=== PATIENT | male | born 1950 | race Caucasian/White ===

== ENCOUNTER 2023-09-06 09:37 | Emergency (ER) | payer MEDICARE, BC, SELFPAY ==
[2023-09-06 09:43] VITALS: BP 150/79
--- NOTE | 2023-09-06 10:30 | ED.GENMED ---
History of Present Illness
General
Chief Complaint: Musculo-Skeletal Complaint
Source: patient
Exam Limitations: none
Time Seen by Provider: 09/06/23 09:53
Nursing documentation reviewed up to this point in time: agreed with
History of Present Illness
History of Present Illness:
The patient is a very pleasant 73-year-old man who reports that he twisted his left foot while walking 3 days ago. Patient reports he did not fall. He did not injure any other areas of his body. Patient reports that initially he had no pain but
the following day after walking his dog for about 45 minutes, he started to develop swelling and pain in his mid left foot. Patient denies weakness and numbness of his feet and legs bilaterally.
Past History
Past History
ED Past Medical History: Arrthythmia (Atrial fibrillation), GERD, Hypercholesterolemia and Other (Kidney stones, diverticulosis)
Social History
Tobacco: Non-smoker
Alcohol: Other
Drug: None
Personal:
Living: with family
Employment: Other
Family History
Family History: Other
Review of Systems
Review of Systems
Allergies reviewed?: Yes
All Other Systems: ROS reviewed and negative except as documented in HPI and ROS
Constitutional: Reports no symptoms
EENT: Reports no symptoms
Respiratory: Reports no symptoms
Cardiac: Reports no symptoms
ABD/GI: Reports no symptoms
: Reports no symptoms
Musculoskeletal: Reports muscle pain and edema
Skin: Reports no symptoms
Neurological: Reports no symptoms
Endocrine: Reports no symptoms
Hematologic/Lymphatic: Reports no symptoms
Psychiatric: Reports no symptoms
Phy Exam
Physical Exam
Physical Exam:
Physical Exam
General: no apparent distress, not acutely ill
Neck: supple. no meningeal signs. normal psoterior pharynx
Heart: s1/s2 regular rate and rhythm, no murmur. equal radial pulses.
Lungs: no acute respiratory distress. clear bilaterally
Abdomen: normal bowel sounds. not tender. no CVAT
Neuro: alert and oriented. no focal neurological deficits
Skin: no rash
Psychiatric: well kept. interactive and cooperative
Extremities: Strong pulses in bilateral feet. Diffuse soft tissue swelling and tenderness of left dorsal aspect of foot. No areas of bony tenderness
Course
Orders/Labs/Results
Orders:
Orders
09/06/23 09:45
Foot, Left 3 View [CR Foot - Left Min 3 Views] Urgent
Comment:
Reason For Exam: injury, swellinig
Vital Signs
Initial and Last Documented VS:
Initial Vital Signs
Temp Pulse Resp BP Pulse Ox
97.9 F 75 16 150/79 98
09/06/23 09:43 09/06/23 09:43 09/06/23 09:43 09/06/23 09:43 09/06/23 09:43
Last Documented Vital Signs
Temp Pulse Resp BP Pulse Ox
97.9 F 70 14 141/72 98
09/06/23 09:43 09/06/23 11:28 09/06/23 11:28 09/06/23 11:28 09/06/23 11:28
MDM/Problems Addressed
Differential Diagnosis Includes:
Left foot contusion, left foot strain, left foot fracture
MDM/Problems Addressed:
Patient presents with acute swelling and pain of left foot after twisting it 3 days ago
*Radiology
Radiology exam reviewed: preliminary read by ED provider (Left foot x-ray reviewed by me. No acute fracture) and radiology read reviewed
*Pulse Oximetry
Patient hypoxic: no
*EKG
Interpreted by ED Provider?: NA
*Safety Patrol Officer Interpretation
Rate: Safety Patrol Officer- N/A
*Critical Care Note
Total Time (30-74mins, 75-104mins- exclusive of procedures): Not Applicable
Data Reviewed
Source: patient and spouse
Update Note
Update Note:
Patient has excellent strength and sensation of his left foot. No fracture seen. Likely due to soft tissue injury. Encouraged ice, elevation, Steve wrap for comfort and follow-up with primary in 3 days if still having pain
ED Attending Note
-
Portions of this chart may have been created with voice recognition software.� Occasional wrong word or��sound alike� substitutions may have occurred due to the inherent limitations of voice recognition software.
Discharge Plan
Departure
Patient Disposition: Home (Routine Discharge)
Date of Disposition: 09/06/23
Time of Disposition: 11:13
Patient with high blood pressure during this ER visit?: Yes
Condition: Good
Covid-19: Not Applicable
Discharge Problem:
Sprain of foot, left
Instructions: Foot Sprain ED
Prescriptions:
New
tramadol 25 mg tablet
50 mg PO BID PRN (Reason: Pain) Qty: 12 0RF
No Action
atorvastatin 40 mg Tablet
40 mg PO QPM
carvedilol 3.125 mg Tablet
1.5625 mg PO BID
Patient Comments:
1/2 tablet BID
esomeprazole magnesium 40 mg Capsule,Delayed Release(Dr/Ec)
40 mg PO DAILY
Eliquis 5 mg Tablet
5 mg PO BID
Referrals:
Alysa Trevizo MD [Family Provider] -
Activity Restrictions/Additional Instructions:
Ice and elevate your left foot is much as possible to reduce the swelling and pain. Please follow-up with your primary care doctor in about 3 days if you are still having significant pain and swelling.
Please try to rest and reduce excessive walking for at least 6 to 7 days. You can weight-bear as tolerated. You can take the Steve wrap on and off for bathing/showering
Interventions
Interventions:
*Risk Screen - Suicide Last Done: 09/06/23 09:43
*General Assessment Last Done: 09/06/23 09:43
*Neglect/Abuse Screening Last Done: 09/06/23 09:43
ED- Fall Risk Assessment Last Done: 09/06/23 11:29
*ED COVID-19 Vaccine History Last Done: 09/06/23 11:29
*Nursing Disposition Last Done: 09/06/23 11:29
ED-Musculoskeletal Assessment Last Done: 09/06/23 11:28
Discharge Date and Time
Discharge Date/Time: 09/06/23 11:30
Print Language: TELUGU
[2023-09-06 11:28] VITALS: BP 141/72
== END 2023-09-06 11:30 | disposition home or self-care (01) ==
LOC: EMR 09:37
PROVIDERS: EMERGENCY PHYSICIAN Emergency Medicine; FAMILY PHYSICIAN Internal Medicine
DX: S93.602A Unspecified sprain of left foot, initial encounter (principal); X50.1XXA Overexertion from prolonged static or awkward postures, initial encounter
CPT/HCPCS: 99283; 73630

== ENCOUNTER 2023-11-07 08:30 | Day surgery (SDC) | payer MEDICARE, BC, SELFPAY ==
[2023-11-07] VITALS (10 sets, daily range): BP systolic 121–140; BP diastolic 72–88
[2023-11-07 11:30] LABS: ACT-LR - POC 305 Seconds (116-155)
[2023-11-07 11:48] LABS: ACT-LR - POC 305 Seconds (116-155)
--- NOTE | 2023-11-07 12:16 | ITS.CL.ABL ---
Duck Operator - Ablation
Ablation
Procedure Report:
ELECTROPHYSIOLOGY ABLATION STUDY
�
DATE:: November 07, 2023 �����������������������������REFERRING: Dr. Jose Alejandro Harman
�
INDICATION: Paroxysmal supraventricular tachycardia in the form of atrial fibrillation and potentially atypical atrial flutter. Prior PVI and posterior box lesion set (IK) in 2022
�
HISTORY: See H and P.��As above
�
ANTIARRHYTHMIC DRUG: Diltiazem
�
PRE-PROCEDURE CHAZ: No atrial thrombus
�
PRESENTING RHYTHM: Sinus bradycardia with frequent PACs
�
'TIME-OUT':��called and confirmed.
�
SEDATION/ANESTHESIA:��provided via the anesthesia department using general anesthesia (LMA).
�
INTRAVENOUS/ARTERIAL ACCESS:
Right femoral venous - 10 Fr, 8Fr
Left femoral venous - 8 Fr, 6 Fr
Vascade vascular closure
Ultrasound guidance for bilateral femoral vein access was utilized by me to obtain access with demonstration of normal anatomy
CHADS-VASC Score:
�
HAS-Bled Score
�
PROCEDURE:
1.��A decapolar CS catheter was placed within the CS for mapping and pacing.��This was also used as the reference catheter for the 3-D map.
�
2. The intracardiac ultrasound catheter was positioned in the RA to identify the FO for targeting of transseptal puncture, assist��in identification of the pulmonary vein ostia, monitoring pre and post ablation pulmonary vein flow velocities,
monitoring for 'bubble' formation during RF application as a sign of thermal injury,��and to monitor for pericardial effusion during mapping and ablation procedure.���Left atrial size, LV ejection fraction, and pulmonary vein flows were monitored
pre and post ablation procedure. The other valves were inspected and found to be free of significant regurgitation or stenosis.
�
3.��Half of the calculated heparin bolus was administered prior to the first transeptal puncture.��Transseptal puncture was performed to diagnose RA and LA pressure so that safety of LA mapping and ablation could be further assessed, and to access
the left atrium and pulmonary veins for mapping and ablation.��This entailed advancing an 10 Slovak SL-1 sheath with dilator into the superior vena cava and withdrawing both (monitoring intracardiac ultrasound, fluoroscopy and tip pressure) with the
tip oriented toward the atrial septum.��The fossa ovalis was engaged (indicated by sudden displacement of the sheath tip as well as tenting of the fossa seen on intracardiac ultrasound).��Left atrial access required a pass with the [place]rough
needle extended.��Left atrial catheter position was confirmed by pressure monitoring (RA mean pressure 8 mm Hg and LA mean presure 14 mm Hg), LA saturation (99%),��as well as fluoroscopy.��The sheath was advanced over the dilator and positioned in
the left atrium.��Over the ProTrac wire after the 10 Slovak steerable sheath was brought to the left atrium�and upgraded to the pulse select sheath. The remainder of the calculated heparin bolus was administered and heparin was
infused to maintain ACT at 300 -350 seconds throughout the case.
�
4.��RA pacing was performed via the proximal decapolar poles and LA pacing was performed via the distal decapolr poles.
�
5. A quadrapolar catheter was first positioned at the His position for His Bundle recording which was tagged via the 3-D Navex sytem, and then passed to the RVA for RV pacing and recording.
�
6. There was focal connection of the left inferior pulmonary vein and the inferior region, the right inferior pulmonary vein and the inferior region, and the septal aspect of the right superior pulmonary vein. The grid was interrogated in each of
the LIPV, LSPV, RSPV and the RIPV.��There was isolated firing from the left atrial posterior wall without demonstrated capture of the remainder of the left atrium at baseline.
�
7.��Next, a 3-D map was created using Navex.���A 3-D reconstructed CT image was compared to the 3-D Navex map to assist in anatomic interpretation, mapping and ablation.��The CT image and the NavX image were fused.
�
8. The left superior left inferior and right inferior pulmonary veins were isolated with the PFA catheter and additional lesions were given in the posterior wall for a total of 44 lesions. Interestingly there was no further isolated firing after
ablation of the posterior wall. Additional AF substrate in the interatrial septum and the floor of the left atrium were targeted.
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
9. Normal sinus node and AV node function were noted.
�
TOTAL FLOURO TIME: 12.6 minutes
�
TOTAL RF DURATION: 0 minutes
�
REVERSAL OF HEPARIN: 35 mg of protamine, slow IV administration
�
COMPLICATIONS:
None
Intracardiac US shows no pericardial effusion post ablation.
�
SUMMARY:��
Complex left atrial mapping and ablation.
Reisolation of the pulmonary veins as above as well as extrapulmonary vein lesions to the posterior wall and interatrial septum. Noninducible for tachyarrhythmias post procedure. Vascade vascular closure was utilized.
�
RECOMMENDATIONS:
1. Admit to monitored bed.��
2. Resume anticoagulation
3. Out of bed in 2 hours
4.� Consider same-day discharge
�
Copy to: Dr. Jose Alejandro Collins
�
--- NOTE | 2023-11-07 15:09 | W.PN.UPDATE ---
Update Note
Progress Note Update
73 yo WM s/p redo PVI (same day). He feels good, no cp, sob yazan diet, voiding, amb w/o dizziness, b/l groins VASCADE c/d/i, soft, EKG SR with PAC's. He will continue OAC Eliquis and diltiazem. Activity restrictions reviewed. He will f/u Dr. Collins
in 2 mo. He is for d/c home after 3pm.
SUMMARY:��
Complex left atrial mapping and ablation.
Reisolation of the pulmonary veins as above as well as extrapulmonary vein lesions to the posterior wall and interatrial septum. Noninducible for tachyarrhythmias post procedure. Vascade vascular closure was utilized.
�
RECOMMENDATIONS:
1. Admit to monitored bed.��
2. Resume anticoagulation
3. Out of bed in 2 hours
4.� Consider same-day discharge
�
Copy to: Dr. Jose Alejandro Collins
== END 2023-11-07 15:12 | disposition home or self-care (01) ==
LOC: CATH 08:30
PROVIDERS: ATTENDING PHYSICIAN Internal Medicine Cardiovascular Disease; FAMILY PHYSICIAN Internal Medicine; OTHER PHYSICIAN Internal Medicine Cardiovascular Disease
DX: I48.19 Other persistent atrial fibrillation (principal); I48.92 Unspecified atrial flutter; I49.3 Ventricular premature depolarization; Z79.899 Other long term (current) drug therapy; K21.9 Gastro-esophageal reflux disease without esophagitis; I10 Essential (primary) hypertension; I25.10 Atherosclerotic heart disease of native coronary artery without angina pectoris; E78.5 Hyperlipidemia, unspecified; Z79.01 Long term (current) use of anticoagulants; R00.1 Bradycardia, unspecified; I49.1 Atrial premature depolarization
CPT/HCPCS: C1732; C1894; C1730; C1733; C1769; C1766; C1892; C1759; 85347; 93005; 93656; 93657; C1760

== ENCOUNTER → 2023-11-21 07:39 | Outpatient (REF) | payer MEDICARE, BC, SELFPAY ==
[2023-11-21 10:43] LABS: Glycohemoglobin (HgbA1c) 5.8 % (4.0-5.6)
[2023-11-21 10:46] LABS: ALT (SGPT) 29 U/L (0-50); AST (SGOT) 21 U/L (17-59); Albumin 4.1 g/dl (3.5-5.0); Alkaline Phosphatase 87 U/L (38-126); Blood Urea Nitrogen 26 mg/dl (9-20); Calcium 9.3 mg/dl (8.4-10.2); Carbon Dioxide 26 mmol/L (22-30); Chloride 103 mmol/L (98-107); Direct Bilirubin 0.2 mg/dl (0.0-0.4); Glucose 95 mg/dl (70-99); HDL Cholesterol 75 mg/dl; LDL Cholesterol, Calculated 93 mg/dl; Potassium 4.1 mmol/L (3.5-5.1); Sodium 141 mmol/L (135-145); Total Bilirubin 0.7 mg/dl (0.2-1.3); Total Cholesterol 180 mg/dl (50-199); Total Protein 6.6 g/dl (6.3-8.2); Triglyceride 64 mg/dl (10-149); Very Low Density Lipoprotein 12 mg/dl (0-30); eGFR > 60.00
== END ==
LOC: HWLAB 07:39
PROVIDERS: ATTENDING PHYSICIAN Internal Medicine
DX: E78.5 Hyperlipidemia, unspecified (principal); R73.01 Impaired fasting glucose; R17 Unspecified jaundice
CPT/HCPCS: 36415; 80053; 80061; 82248; 83036

== ENCOUNTER 2024-02-06 09:33 | Day surgery (SDC) | payer MEDICARE, BC, SELFPAY ==
[2024-02-06 10:01] VITALS: BMI 25.6
--- NOTE | 2024-02-06 10:43 | ITS.CL.CARDI ---
Personnel Recruiter - Cardioversion
Cardioversion
Procedure Report:
Procedure: Direct current electrical cardioversion
Pre-operative diagnosis: Persistent atrial fibrillation
Post-operative diagnosis: Persistent atrial fibrillation status post DC cardioversion to sinus rhythm
Anesthesia: MAC
Attending Physician: Alvin Harman MD
Procedure Description: The patient was brought to the electrophysiology laboratory in the fasting state. Adherence to anticoagulation regimen was confirmed. Informed consent was obtained from the patient prior to the start of the procedure.
Electrodes were placed on the patient and connected to an external defibrillator. Monitoring of blood pressure, ECG tracings, and pulse oximetry was initiated. The pads were applied to the patient in the anterior and posterior positions. The patient
was sedated by the anesthesiologist. A 200 joule biphasic synchronized shock was delivered to the patient under MAC anesthesia. Sinus rhythm was successfully restored. The patient recovered uneventfully from MAC anesthesia. There were no immediate
post-procedure complications. The patient left the lab in good condition. The attending physician was present throughout the entire procedure.
Impression: Successful direct current cardioversion with yarsani of sinus rhythm after one 200 joule biphasic synchronized shock.
--- NOTE | 2024-02-06 10:46 | PTCARENOTE ---
doing med rec with pt, he told this nurse he took no medications this am everything was yesterday, when doing time out this pt he stated to team he took both eliquis and cardizem this am, reclarified with pt lenka and team zeferino team he was wrong
and told me the wrong information and did take eliquis this am with no skipped doses.
== END 2024-02-06 11:21 | disposition home or self-care (01) ==
LOC: CATH 09:33
PROVIDERS: ATTENDING PHYSICIAN Internal Medicine Cardiovascular Disease; FAMILY PHYSICIAN Internal Medicine
DX: I48.19 Other persistent atrial fibrillation (principal); I48.92 Unspecified atrial flutter; I49.3 Ventricular premature depolarization; I49.1 Atrial premature depolarization; I25.10 Atherosclerotic heart disease of native coronary artery without angina pectoris; I10 Essential (primary) hypertension; E78.5 Hyperlipidemia, unspecified; K21.9 Gastro-esophageal reflux disease without esophagitis; Z79.01 Long term (current) use of anticoagulants
CPT/HCPCS: 92960; 93005

== ENCOUNTER 2024-02-19 07:49 | Inpatient (IN) | payer MEDICARE, BC, SELFPAY ==
--- NOTE | 2024-02-19 08:08 | W.PN.CARDCBS ---
Addendum entered and electronically signed by Vipul Davis MD 02/19/24 13:48:
I saw and examined the patient.
The DOOR ATTENDANT or PA's note was reviewed and I agree with the note.
Comment: General: Well developed, well nourished in NAD.
Neck: Supple, no JVD, HJR, carotids +2 B/L, no bruits bilaterally.
Heart: Non displaced PMI, RRR, no murmurs, No S3, S4, no rubs.
Lungs: Clear to auscultation bilaterally, no wheeze, rhonchi, rubs bilaterally,
normal expiratory phase.
Extremities: No clubbing, cyanosis or edema bilaterally.
Neuro: Grossly nonfocal, awake, alert and oriented x3.
Remains in sinus rhythm. Tikosyn has been ordered. Will follow QT interval. He had recently started on Lasix and will check proBNP.
Original Note:
Today's Communication / Plan
-
CrCl 81, start Tikosyn 500 mcg q 12 hours now
Follow HR and will likely lower dose of Cardizem CD to 120 mg BID this evening
No missed doses of Eliquis
Check pro-BNP
Impression / Plan
-
PCP: Dr. Trevizo
Cardiology: Dr. Harman
EP: Dr. Alonzo
Impression:
Direct admission for Tikosyn loading for paroxysmal Afib
Paroxysmal Afib/atypical atrial flutter
s/p PVI 06/08/22
s/p PVI 11/07/23
s/p latest CV 02/06/24
Previously on flecainide for [id number]
prescribed by a center director in [place], had couplets with a dose months ago, no recent doses taken
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
Nonflow limiting RCA lesion 40 to 50% proximal and 60% mid, 50% mid circumflex lesion
HTN
Stress echo 03/30/2022: Completed 8.5 METS of activity with [address] depression
Echo 2021: [facility] study, EF 55% with severely dilated left atrium and no valvular disease
Plan:
-Patient was seen in the cardiology office on 02/11/2024 and was noted to be in recurrent atypical atrial flutter following recent cardioversion and was offered Tikosyn admission for loading and was agreeable. Patient has a history of paroxysmal
atrial fibrillation initially diagnosed at [facility] in 2021. Patient then had a PVI with the other cardiology group on 06/08/2022. Patient recurred with atrial arrhythmia and has had CV. Patient was also in [place] and while there had
recurrent AF on 04/04/2023 and was started on flecainide pill in the pocket at that time. Patient's reported that the patient had couplets with a dose of flecainide back in 06/2023. 1 patient last saw us in the office on 02/11/2024 it was in
follow-up to a CV that was performed on 02/06/2024 and he was back in atypical atrial flutter. He has not taken any recent doses of flecainide. He has not missed any doses of Eliquis.
-ECG reviewed by me and patient is in SR with PVCs. QTc 445 ms.
-No recent doses of flecainide
-No missed doses of Eliquis.
-CrCl calculated by me is 81 based on age 73, wt 175 lbs and Cre 0.9. Will start Tikosyn 500 mcg q 12 hours
-Outpatient dose of Cardizem 240 mg BID was given this AM. Will follow on tele and plan to decrease dose of Cardizem CD now that he is back in SR.
-Recent outpatient telephone tasks reviewed, patient was started on Lasix 20 mg PO daily for 3 days due to increased LE edema and SOB. Patient reports a 6 lb weight loss and improved edema/PEREZ after Lasix dosed. Will not order additional Lasix at
this time. Check pro-BNP.
-Potassium is low normal at 3.7 and magnesium is 1.9. Will give KCl 40 meq now and follow up BMP in AM
-Patient reports that he is asymptomatic with Afib/flutter, but can tell he is out of rhythm when he check pulse.
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
Subjective
Date of Service: February 19, 2024
No chest pain or SOB
Objective
Labs:
Sodium 137, potassium 3.7, BUN 23, creatinine 0.9, blood sugar 1-2, magnesium 1.9
Hemoglobin 13.5, hematocrit 40.9, WBC 9.9, PLT 207
Vital Signs and I&O:
BP 127/70, heart rate 70, respiratory rate 18, temp 97.9, pulse ox 97% room air
Physical Exam
Physical Exam
GEN: NAD. AAOx3
HEENT: EOMI, MMM
LUNGS: RA. CTA B/L, no wheezes or rales
CV: Reg, S1/S2, no murmur
ABD: soft, BS+, NT, ND
EXT: No clubbing, cyanosis, lesions or edema B/L
NEURO: Gross non-focal
SKIN: Warm, dry and pink. No rash
[2024-02-19 08:17] VITALS: BP 127/70
[2024-02-19] MEDS: CARDIZEM CD 240 MG PO (08:47)
[2024-02-19] MEDS: ELIQUIS 5 MG PO ×2 (08:47→19:58)
[2024-02-19 09:17] LABS: Hematocrit 40.9 % (39.0-52.0); Hemoglobin 13.5 g/dL (13.0-18.0); Mean Corpuscular Hgb 27.9 pg (27.0-31.0); Mean Corpuscular Volume 84.5 fL (80.0-94.0); Mean Platelet Volume 10.7 fL (7.4-10.4); Platelet Count 207 10^3/uL (130-400); Red Blood Cell Count 4.84 10^6/uL (4.70-6.10); Red Cell Dist. Width 13.7 % (11.5-14.5); White Blood Cell Count 9.9 10^3/uL (4.8-10.8)
[2024-02-19 09:29] LABS: ALT (SGPT) 35 U/L (0-50); AST (SGOT) 22 U/L (17-59); Albumin 4.2 g/dl (3.5-5.0); Alkaline Phosphatase 86 U/L (38-126); Blood Urea Nitrogen 23 mg/dl (9-20); Calcium 9.2 mg/dl (8.4-10.2); Carbon Dioxide 26 mmol/L (22-30); Chloride 101 mmol/L (98-107); Glucose 102 mg/dl (70-99); Magnesium 1.9 mg/dl (1.6-2.3); Potassium 3.7 mmol/L (3.5-5.1); Sodium 137 mmol/L (135-145); Total Bilirubin 0.7 mg/dl (0.2-1.3); Total Protein 6.5 g/dl (6.3-8.2); eGFR > 60.00
[2024-02-19 09:34] VITALS: BMI 25.1
[2024-02-19 09:42] VITALS: BMI 25.1
--- NOTE | 2024-02-19 10:03 | W.CARD.TIKOS ---
Initiate Tikosyn
-
I verify that the patient has not taken any verapamil (Isoptin/Calan), ketoconazole (Nizoral), cimetidine (Tagamet), trimethoprim (Trimpex), trimethoprim/sulfamethoxazole (Bactrim), megesterol (Megace), prochlorperazine (Compazine),
hydrochlorothiazide (HCTZ), dolutegravir (Tivicay) or any Class I or Class III anti-arrhythmic within the last three days
AND
I verify that the patient has not taken amiodarone within the last THREE months, or that the patient's amiodarone plasma concentration is <0.3 mcg/mL.
Creatinine 0.9 mg/dL (0.7-1.3) 02/19/24 09:05
CrCl 81 calculated by me
Does patient have a Ventricular Conduction Abnormality: No
I have assessed the baseline QTc interval (using QT for heart rate less than 60 bpm) and deemed the patient is appropriate for Dofetilide therapy. I understand that Tikosyn is contraindicated if the QTc is >440msec (500msec in patients with
ventricular conduction abnormalities).
Baseline QTc (in msec): 445
QTc interval is greater than 440msec without conduction abnormality OR greater than 500msec with a conduction abnormality, but acceptable to proceed per Cardiology attending.
Reason for Administration with Prolonged QTc: Other Atrial Arrhythmia
Ordering Physician: Other (Dr. Vinod Harman)
--- NOTE | 2024-02-19 10:28 | CM ---
Addendum entered by Krystal Herring 02/19/24 11:52:
Telephone call to [facility] to check on co-pay and if they have Dofetilide 500 mcg in stock. [facility] has Dofetilide 500 mcg in stock. His co-pay would be zero.
Original Note:
Reviewed chart. Met with Mr. Amin to review discharge plans. He states prior to admission he resides with his spouse in a spilt level home without any steps to enter. He states he has six steps to each level. His bathrooms are on the second
floor. He states prior to admission he was independent with ambulation and adls. He states he does not have any DME in the home. He states he has a prescription plan with [employer] but in the new year his prescription plan coverage will change.
He will need a three day script sent to [facility] for a three day supply of Tikosyn for him to take home with him. Will try to get co-pay for Dofetilide. Medical work-up in progress. The discharge plan is to return home with his spouse when
medically stable.
[2024-02-19] MEDS: TIKOSYN 500 MCG PO ×2 (10:29→22:29)
[2024-02-19 11:33] VITALS: BP 124/94
[2024-02-19 11:59] LABS: NT-proBNP 533 pg/ml
--- NOTE | 2024-02-19 13:06 | PTCARENOTE ---
Tikosyn dose #1 administered. Ekg obtained. QTC 452. EKG reads SR w/ 1st deg AV block and occ PVCs. Dominga HOPKINS made aware.
[2024-02-19 15:23] VITALS: BP 133/85
[2024-02-19] MEDS: LIPITOR 40 MG PO (17:27)
[2024-02-19 19:48] VITALS: BP 136/89
--- NOTE | 2024-02-19 20:55 | PTCARENOTE ---
Pt. received at change of shift. Pt. seen and assessed in room. Pt. AOx3, tele reading NSR w/ occ. PVCs. VS WNL. Pt. ambulating in [place] without difficulty. Pt. educated on plan of care/next tikosyn dose & EKG. Pt. verbalizes understanding. Call teixeira
within reach. Continuing to monitor at this time.
[2024-02-19 22:14] VITALS: BP 133/67
[2024-02-19 22:41] VITALS: BP 133/67
[2024-02-20] VITALS (7 sets, daily range): BP systolic 134–153; BP diastolic 79–94; BMI 25.1
--- NOTE | 2024-02-20 00:58 | PTCARENOTE ---
EKG done post second tikosyn dose. First EKG reading STEMI, KELLIE Kincaid reviewed EKG, EKG false. Cardiac services contacted to cancel EKG. Another EKG done reading NSR w/ PVCs. QTc 501. Discussed with KELLIE Kincaid. 6am EKG to be done
in AM. Continuing to monitor pt at this time.
[2024-02-20 04:12] LABS: Hematocrit 38.9 % (39.0-52.0); Hemoglobin 12.8 g/dL (13.0-18.0); Mean Corp Hgb Conc. 32.9 g/dL (33.0-37.0); Mean Corpuscular Hgb 27.8 pg (27.0-31.0); Mean Corpuscular Volume 84.4 fL (80.0-94.0); Mean Platelet Volume 10.5 fL (7.4-10.4); Platelet Count 187 10^3/uL (130-400); Red Blood Cell Count 4.61 10^6/uL (4.70-6.10); Red Cell Dist. Width 13.6 % (11.5-14.5); White Blood Cell Count 7.4 10^3/uL (4.8-10.8)
[2024-02-20 04:42] LABS: Blood Urea Nitrogen 27 mg/dl (9-20); Calcium 8.8 mg/dl (8.4-10.2); Carbon Dioxide 27 mmol/L (22-30); Chloride 103 mmol/L (98-107); Estimated Creatinine Clearance 84 ml/min; Glucose 94 mg/dl (70-99); Potassium 3.7 mmol/L (3.5-5.1); Sodium 137 mmol/L (135-145); eGFR > 60.00
[2024-02-20] MEDS: CARDIZEM CD 120 MG PO (08:13)
[2024-02-20] MEDS: PROTONIX 40 MG PO (08:13)
[2024-02-20] MEDS: ELIQUIS 5 MG PO ×2 (08:13→19:21)
--- NOTE | 2024-02-20 08:32 | W.PN.CARDCBS ---
Addendum entered and electronically signed by Gigi Lock MD 02/20/24 11:59:
73-year-old man with history of paroxysmal A-fib and presumed left atrial flutter, status post PVI in 2022, 2023 with cardioversion in January, admitted now for dofetilide loading. Had QT prolongation with initial dofetilide dose.
PMH: Hypertension, hyperlipidemia, nonobstructive CAD by cardiac catheterization in March 2022, GERD, depression
PSH/FH/SH: Reviewed
Allergies: None
Medications, inpatient and outpatient, reviewed
138/79, pulse 67, afebrile, head neck exam unremarkable, lungs are clear, extremities without clubbing cyanosis edema abdomen benign
ECG at 3:48, QTc was 490 with PVC
ECG 11: 18 sinus rhythm, QTc 0.46, PVC
BUN and creatinine are 27 and 0.8 with a potassium of 3.7
Hemoglobin 12.8
Plan:
Overall stable, but with borderline QT interval and now on reduced dose dofetilide.
Will continue dofetilide loading protocol at 250 mcg twice daily.
Original Note:
Today's Communication / Plan
-
Continue Tikosyn load. Dose reduced to 250mcg in AM 02/19.
Continue Eliquis 5mg BID
HR stable on lower dose Diltiazem 120mg daily
Impression / Plan
-
PCP: Dr. Trevizo
Cardiology: Dr. Harman
EP: Dr. Alonzo
Impression:
Direct admission for Tikosyn loading for paroxysmal Afib
Paroxysmal Afib/atypical atrial flutter
s/p PVI 06/08/22
s/p PVI 11/07/23
s/p latest CV 02/06/24
Previously on flecainide for [id number]
prescribed by a electroless plater in [place], had couplets with a dose months ago, no recent doses taken
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
Nonflow limiting RCA lesion 40 to 50% proximal and 60% mid, 50% mid circumflex lesion
HTN
Stress echo 03/30/2022: Completed 8.5 METS of activity with [address] depression
Echo 2021: [facility] study, EF 55% with severely dilated left atrium and no valvular disease
Plan:
-Patient w/ recurrent symptomatic atypical atrial flutter despite prior PVI x2, flecainide therapy, and recent CV 02/06/24. Admitted for Tikosyn loading.
-Started on Tikosyn 500mcg Q12H 02/18. After 2nd dose, QT prolonged to 501 ms and now placed on lower dose 250 mcg Q12H starting 02/19 AM.
-Continue to follow QTc after each dose. QTc 02/19 AM prior to starting lower dose is 489 ms.
-Remains in SR w/ PVCs noted.
-Continue uninterrupted AC with Eliquis.
-Cardizem dose reduced, down to 120mg daily. HR stable.
-Recently was started on Lasix 20 mg PO daily for 3 days due to increased LE edema and SOB. Patient reports a 6 lb weight loss and improved edema/PEREZ after Lasix doses.
-ProBNP 533 02/18. No further lasix ordered at this time.
-Potassium is low normal at 3.7 and magnesium is 1.9. Will give KCl 40 meq now and follow up BMP in AM
Progress Note - Linotype Operator
Subjective
Date of Service: February 20, 2024
No complaints. Feeling well.
Objective
Labs:
02/20/24 03:56
02/20/24 03:56
Labs
Hgb 12.8 g/dL (13.0-18.0) L 02/20/24 03:56
Hct 38.9 % (39.0-52.0) L 02/20/24 03:56
Plt Count 187 10^3/uL (130-400) 02/20/24 03:56
Sodium 137 mmol/L (135-145) 02/20/24 03:56
Potassium 3.7 mmol/L (3.5-5.1) 02/20/24 03:56
BUN 27 mg/dl (9-20) H 02/20/24 03:56
Creatinine 0.8 mg/dL (0.7-1.3) 02/20/24 03:56
Glucose 94 mg/dl (70-99) 02/20/24 03:56
Vital Signs and I&O:
Vital Signs
Temp Pulse Resp BP Pulse Ox
97.9 F 66 20 138/85 98
02/20/24 07:12 02/20/24 07:30 02/20/24 07:12 02/20/24 07:14 02/20/24 07:12
Vital Signs
Temp Pulse Resp BP Pulse Ox
97.9 F 66 20 138/85 98
02/20/24 07:12 02/20/24 07:30 02/20/24 07:12 02/20/24 07:14 02/20/24 07:12
Intake & Output
02/18/24 02/19/24 02/20/24 02/21/24
06:59 06:59 06:59 06:59
Intake Total 400 / 400
Balance 400 / 400
Physical Exam
Physical Exam
GEN: NAD. AAOx3
HEENT: EOMI, MMM
LUNGS: CTA B/L, no wheezes or rales
CV: Reg, S1/S2, no murmur
EXT: No clubbing, cyanosis, lesions or edema B/L
NEURO: Gross non-focal
SKIN: Warm, dry and pink. No rash
[2024-02-20] MEDS: KCL 40 MEQ PO (08:48)
[2024-02-20] MEDS: TIKOSYN 250 MCG PO ×2 (09:30→19:20)
--- NOTE | 2024-02-20 10:52 | CM ---
Addendum entered by Krystal Herring 02/20/24 11:25:
Received telephone call from [facility] who confirms they have Dofetilide 250 mcg in stock.
Original Note:
Reviewed chart. Met with Mr. Amin to review discharge plans. He states he is feeling well. Prior to admission he resides with his spouse in a spilt level home without any steps to enter. He has six steps to each level. Bathrooms are on the
second floor. Prior to admission he was independent with ambulation and adls. He does not have any DME in the home. He has a prescription plan with [facility] but he is changing prescription coverage in March. His current co-pay for Dofetilide is
zero. Telephone call to [facility] to check if they have Dofetilide 250 mcg in stock. Left message. He will need a three day script sent to [facility] so he can take home with him. Medical work-up in progress. The discharge plan is to
return home with his spouse when medically stable.
--- NOTE | 2024-02-20 11:21 | PTCARENOTE ---
Tikosyn dose #3 administered. Ekg obtained. Tele remains SR w/ PVCs. No c/o at this time. Call lluvia w/in reach.
[2024-02-20] MEDS: LEXAPRO 10 MG PO (14:54)
[2024-02-20] MEDS: LIPITOR 40 MG PO (18:13)
--- NOTE | 2024-02-20 21:55 | PTCARENOTE ---
Pt. received at change of shift. Pt seen and assessed in room. Pt. AOx3, sitting comfortably in chair. No complaints of pain at this time. Tele reading NSR. Per report, plan of care includes pt. NPO past midnight for poss. cardioversion in AM if pt.
goes into Afib. Pt. verbalizes understanding. 4th dose of tikosyn given around 7:30pm. EKG to be done 2 hours later. Call teixeira within reach. Continuing to monitor at this time.
[2024-02-21 03:36] VITALS: BP 171/89
[2024-02-21] MEDS: TYLENOL 650 MG PO (03:47)
[2024-02-21 03:56] VITALS: BMI 25.1
[2024-02-21 04:40] LABS: Blood Urea Nitrogen 23 mg/dl (9-20); Calcium 9.4 mg/dl (8.4-10.2); Carbon Dioxide 26 mmol/L (22-30); Chloride 103 mmol/L (98-107); Estimated Creatinine Clearance 74 ml/min; Glucose 95 mg/dl (70-99); Potassium 3.9 mmol/L (3.5-5.1); Sodium 137 mmol/L (135-145); eGFR > 60.00
[2024-02-21 04:52] VITALS: BP 153/93
[2024-02-21 07:00] VITALS: BP 154/101
[2024-02-21 07:02] VITALS: BP 146/97
--- NOTE | 2024-02-21 07:58 | W.PN.CARDCBS ---
Addendum entered and electronically signed by Khadra Lock PA-C 02/21/24 16:34:
[id number]
Addendum entered and electronically signed by Alvin Harman MD 02/21/24 10:48:
I saw and examined the patient.
The Exterminator Helper Termite's note was reviewed and I agree with the note.
Comment: Briefly, 73-year-old man past medical history of persistent atrial fibrillation/atrial flutter with multiple prior ablations who presents for Tikosyn loading
Mr. Amin is resting comfortably today out of bed to chair, not experiencing any palpitations, no cardiac complaints
Telemetry shows normal sinus rhythm with occasional PVCs
QTc remained stable on 250 mcg twice daily of dofetilide, will continue this dose on discharge
Continue diltiazem
Eliquis for cardioembolic prophylaxis
Outpatient cardiology follow-up arranged
Stable for discharge from my perspective
Original Note:
Today's Communication / Plan
-
Tikosyn 250 mcg every 12 hours
Cardizem 120 mg twice daily
Eliquis 5 mg twice daily
check magnesium
plan for discharge to home today
OP cardiac follow up arranged
Impression / Plan
-
PCP: Dr. Trevizo
Cardiology: Dr. Harman
EP: Dr. Alonzo
Impression:
Direct admission for Tikosyn loading for paroxysmal Afib
Paroxysmal Afib/atypical atrial flutter
s/p PVI 06/08/22
s/p PVI 11/07/23
s/p latest CV 02/06/24
Previously on flecainide for [id number]
prescribed by a wafer production lead worker in [place], had couplets with a dose months ago, no recent doses taken
PVCs
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
Nonflow limiting RCA lesion 40 to 50% proximal and 60% mid, 50% mid circumflex lesion
HTN
Stress echo 03/30/2022: Completed 8.5 METS of activity with [address] depression
Echo 2021: [facility] study, EF 55% with severely dilated left atrium and no valvular disease
Plan:
-Patient w/ recurrent symptomatic atypical atrial flutter despite prior PVI x2, flecainide therapy, and recent CV 02/06/24. Admitted for Tikosyn loading.
-Was initially started on 500 mcg, however dose reduced 250 mcg starting 02/19 a.m. due to mild QT prolongation. QTc improved and stable on review of subsequent EKGs
-Remains in sinus rhythm with occasional PVCs. He did have 1 run of 5 beats of NSVT yesterday morning. Patient has known history of PVCs. K 3.9. Check magnesium
-Continue anticoagulation with Eliquis
-Was on Cardizem to 40 mg twice daily prior to admission, dose decreased to 120 mg daily on admission, however blood pressures elevated. Will increase dose back to 120 mg twice daily
-He received 3-day course of Lasix 20 mg daily due to increased lower extremity edema and shortness of breath. He responded well to this, and has been off of Lasix since that time. Will not plan to discharge on standing dose Lasix, however advised
to follow weights daily and call the office with weight gain of 3 pounds in a day/5 pounds in a week/worsening shortness of breath/worsening lower extremity edema
-Outpatient cardiac follow-up arranged
-Okay for discharge to home today
-Total discharge time greater than 30 minutes
Progress Note - Enterprise Application Developer
Subjective
Date of Service: February 21, 2024
Feeling well. Eager for discharge
Objective
Labs:
02/20/24 03:56
02/21/24 03:54
Labs
Hgb 12.8 g/dL (13.0-18.0) L 02/20/24 03:56
Hct 38.9 % (39.0-52.0) L 02/20/24 03:56
Plt Count 187 10^3/uL (130-400) 02/20/24 03:56
Sodium 137 mmol/L (135-145) 02/21/24 03:54
Potassium 3.9 mmol/L (3.5-5.1) 02/21/24 03:54
BUN 23 mg/dl (9-20) H 02/21/24 03:54
Creatinine 0.9 mg/dL (0.7-1.3) 02/21/24 03:54
Glucose 95 mg/dl (70-99) 02/21/24 03:54
Vital Signs and I&O:
Vital Signs
Temp Pulse Resp BP Pulse Ox
97.6 F 65 20 153/93 96
02/21/24 06:57 02/21/24 06:15 02/21/24 06:57 02/21/24 04:52 02/21/24 06:57
Vital Signs
Temp Pulse Resp BP Pulse Ox
97.6 F 65 20 153/93 96
02/21/24 06:57 02/21/24 06:15 02/21/24 06:57 02/21/24 04:52 02/21/24 06:57
Intake & Output
02/18/24 02/19/24 02/20/24 02/21/24
07:59 07:59 07:59 07:59
Intake Total 500 / 500
Balance 500 / 500
Physical Exam
Physical Exam
GEN: No distress, awake, alert, oriented x3. Sitting in chair
HEENT: supple, anicteric, mmm, EOMI
LUNGS: CTA bilaterally, no wheezes/rales
CV: Reg, S1/S2, 1/6 murmur
ABD: soft, BS+, NT/ND
EXT: No cyanosis, clubbing. Trace edema of bilateral lower extremity
NEURO: Gross non-focal
SKIN: Warm, pink, dry. No rash
[2024-02-21] MEDS: CARDIZEM CD 120 MG PO (08:07)
[2024-02-21] MEDS: ELIQUIS 5 MG PO (08:07)
[2024-02-21] MEDS: PROTONIX 40 MG PO (08:08)
[2024-02-21] MEDS: TIKOSYN 250 MCG PO (08:08)
--- NOTE | 2024-02-21 09:51 | CM ---
Reviewed chart. Sent three day script down to [facility] to be filled. Spoke with .. Pharmacy.. Met with Mr. Amin to reviewed discharge plans. He states he is feeling well and maybe able to go home soon. We reviewed the three day
supply of Dofeitilide to go home with him. Prior to admission he resides with his spouse to[place] spilt level home without any steps to enter. He has six steps to get to each level The bathroom are on the second floor. Prior to admission he was
independent with ambulation and adls. He does not have any DME in the home. He has a prescription plan and uses [facility]. Medical Work-up in progress. The discharge plan is to return home with his spouse when medically stable.
[2024-02-21 09:59] LABS: Magnesium 1.9 mg/dl (1.6-2.3)
--- NOTE | 2024-02-21 10:11 | W.DS.TRANS ---
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
-
Discharge Instructions:
Sleep Apnea Risk Intermediate
Discharge Diagnosis/Procedures tikosyn load, atrial fibrillation
Diet 2 Gram Sodium
Activity As tolerated
Driving Restrictions As prior to admission
Bathing Restrictions None
Specialty Instructions Weigh Daily
Instructions:
Stand-Alone Forms:
Changes to Home Medications: Yes
Discharge Medications:
DC Medications w/original date entered in [employer]
apixaban 5 mg tablet (Eliquis) 5 mg PO BID blood thinner 04/03/22
atorvastatin 40 mg tablet 40 mg PO QPM High Cholesterol 04/03/22
esomeprazole magnesium 40 mg capsule,delayed release 40 mg PO DAILY Gastrointestinal Issue 04/03/22
Bifidobacterium infantis 4 mg capsule (Align (B.infantis)) 4 mg PO DAILY probiotic 10/15/23
escitalopram oxalate 5 mg tablet (Lexapro) 10 mg PO DAILY depression/anxiety 02/06/24
fluticasone propionate 50 mcg/actuation nasal spray,suspension 2 spray intranasal DAILY Allergies 02/06/24
diltiazem HCl 120 mg capsule,extended release 24 hr 120 mg PO BID #60 caps 02/21/24
dofetilide 250 mcg capsule (Tikosyn) 250 mcg PO Q12H #30 caps 02/21/24
furosemide 20 mg tablet (Lasix) 20 mg PO PRN PRN Weight gain #1 tab 02/21/24
Home Medication Changes
tikosyn is new
cardizem reduced
lasix 20mg PRN
Pending Results: No
[2024-02-21] MEDS: MAGNESIUM OXIDE 500 MG PO (10:22)
[2024-02-21] MEDS: KCL 10 MEQ PO (10:22)
== END 2024-02-21 10:49 | disposition home or self-care (01) | DRG 310 ==
LOC: IVU 07:49
PROVIDERS: Physician Assistant; Physician Assistant Medical; ADMITTING PHYSICIAN Internal Medicine Cardiovascular Disease; FAMILY PHYSICIAN Internal Medicine
DX: I48.0 Paroxysmal atrial fibrillation (principal); I48.4 Atypical atrial flutter; I10 Essential (primary) hypertension
CPT/HCPCS: 80048; 80053; 83735; 83880; 85027; 93005

== ENCOUNTER → 2024-03-30 07:47 | Outpatient (REF) | payer OTHER, SELFPAY ==
[2024-03-30 09:21] LABS: % Basophils 0.3 % (0-2); % Immature Granulocytes 0.1 % (0-0.5); % Lymphocytes 23.1 % (20.5-51.1); % Monocytes 9.4 % (1.7-9.3); % Neutrophils 65.1 % (42.2-75.2); Absolute Eosinophils 0.1 10^3/uL (0-0.7); Absolute Lymphocytes 1.7 10^3/uL (1.2-3.4); Absolute Monocytes 0.7 10^3/uL (0.1-0.6); Absolute Neutrophils 4.6 10^3/uL (1.4-6.5); Hematocrit 46.5 % (39.0-52.0); Hemoglobin 14.6 g/dL (13.0-18.0); Mean Corp Hgb Conc. 31.4 g/dL (33.0-37.0); Mean Corpuscular Hgb 27.1 pg (27.0-31.0); Mean Corpuscular Volume 86.3 fL (80.0-94.0); Mean Platelet Volume 9.8 fL (7.4-10.4); Nucleated Red Blood Cells % 0 % (-); Platelet Count 181 10^3/uL (130-400); Red Blood Cell Count 5.39 10^6/uL (4.70-6.10); Red Cell Dist. Width 13.8 % (11.5-14.5); White Blood Cell Count 7.1 10^3/uL (4.8-10.8)
[2024-03-30 09:40] LABS: ALT (SGPT) 29 U/L (0-50); AST (SGOT) 25 U/L (17-59); Albumin 4.1 g/dl (3.5-5.0); Alkaline Phosphatase 102 U/L (38-126); Blood Urea Nitrogen 20 mg/dl (9-20); Calcium 9.2 mg/dl (8.4-10.2); Carbon Dioxide 32 mmol/L (22-30); Chloride 100 mmol/L (98-107); Glucose 91 mg/dl (70-99); HDL Cholesterol 76 mg/dl; LDL Cholesterol, Calculated 109 mg/dl; Magnesium 1.8 mg/dl (1.6-2.3); Sodium 138 mmol/L (135-145); Total Cholesterol 197 mg/dl (50-199); Total Protein 6.6 g/dl (6.3-8.2); Triglyceride 64 mg/dl (10-149); Very Low Density Lipoprotein 12 mg/dl (0-30); eGFR > 60.00
[2024-03-30 11:07] LABS: Glycohemoglobin (HgbA1c) 5.8 % (4.0-5.6)
== END ==
LOC: HWLAB 07:47
PROVIDERS: ATTENDING PHYSICIAN Nurse Practitioner; FAMILY PHYSICIAN Internal Medicine
DX: E78.5 Hyperlipidemia, unspecified (principal); K21.9 Gastro-esophageal reflux disease without esophagitis; R73.01 Impaired fasting glucose; I48.92 Unspecified atrial flutter
CPT/HCPCS: 36415; 80053; 80061; 83036; 83735; 85025

== ENCOUNTER → 2024-07-24 11:28 | Outpatient (REF) | payer OTHER, SELFPAY ==
[2024-07-26 15:06] LABS: FIT-Fecal Occult Blood Interp Negative
== END ==
LOC: REG 11:28
PROVIDERS: ATTENDING PHYSICIAN Internal Medicine; FAMILY PHYSICIAN Internal Medicine
DX: Z12.11 Encounter for screening for malignant neoplasm of colon (principal)
CPT/HCPCS: 83520

== ENCOUNTER 2024-09-29 10:30 | Day surgery (SDC) | payer OTHER, SELFPAY ==
--- NOTE | 2024-09-29 12:21 | ITS.CL.CARDI ---
Incident Analyst - Cardioversion
Cardioversion
Procedure Report:
Procedure: Direct current electrical cardioversion
Pre-operative diagnosis: Persistent atrial flutter
Post-operative diagnosis: Persistent atrial flutter status post DC cardioversion to sinus rhythm
Anesthesia: MAC
Attending Physician: Alvin Harman MD
Procedure Description: The patient was brought to the electrophysiology laboratory in the fasting state. Adherence to anticoagulation regimen was confirmed. Informed consent was obtained from the patient prior to the start of the procedure.
Electrodes were placed on the patient and connected to an external defibrillator. Monitoring of blood pressure, ECG tracings, and pulse oximetry was initiated. The pads were applied to the patient in the anterior and posterior positions. The patient
was sedated by the anesthesiologist. A 200 joule and subsequent 360 joule biphasic synchronized shock was delivered to the patient under MAC anesthesia. Sinus rhythm was successfully restored. The patient recovered uneventfully from MAC anesthesia.
There were no immediate post-procedure complications. The patient left the lab in good condition. The attending physician was present throughout the entire procedure.
Impression: Successful direct current cardioversion with zoroastrian of sinus rhythm after 200 joule and subsequent 360 joule biphasic synchronized shocks.
== END 2024-09-29 12:35 | disposition home or self-care (01) ==
LOC: CATH 10:30
PROVIDERS: ATTENDING PHYSICIAN Internal Medicine Cardiovascular Disease; FAMILY PHYSICIAN Internal Medicine
DX: I48.92 Unspecified atrial flutter (principal); I48.19 Other persistent atrial fibrillation; Z79.01 Long term (current) use of anticoagulants; I10 Essential (primary) hypertension; I25.10 Atherosclerotic heart disease of native coronary artery without angina pectoris
CPT/HCPCS: 92960; 93005

== ENCOUNTER 2024-11-30 08:10 | Inpatient (IN) | payer OTHER, SELFPAY ==
[2024-11-30] VITALS (9 sets, daily range): BP systolic 136–164; BP diastolic 91–117; BMI 24.6
[2024-11-30 09:23] LABS: Hematocrit 39.0 % (39.0-52.0); Hemoglobin 13.0 g/dL (13.0-18.0); Mean Corp Hgb Conc. 33.3 g/dL (33.0-37.0); Mean Corpuscular Volume 83.3 fL (80.0-94.0); Platelet Count 426 10^3/uL (130-400); Red Cell Dist. Width 16.5 % (11.5-14.5)
[2024-11-30] MEDS: CARDIZEM CD PO (10:36)
[2024-11-30] MEDS: ELIQUIS PO (10:36)
[2024-11-30 11:44] LABS: TSH 2.59 uIU/ml (0.47-4.68)
[2024-11-30 11:54] LABS: Blood Urea Nitrogen 22 mg/dl (9-20); Calcium 9.0 mg/dl (8.4-10.2); Carbon Dioxide 27 mmol/L (22-30); Chloride 106 mmol/L (98-107); Estimated Creatinine Clearance 76 ml/min; Glucose 100 mg/dl (70-99); Magnesium 1.8 mg/dl (1.6-2.3); Potassium 4.6 mmol/L (3.5-5.1); Sodium 137 mmol/L (135-145); eGFR > 60.00
--- NOTE | 2024-11-30 12:30 | W.CARD.TIKOS ---
Initiate Tikosyn
-
I verify that the patient has not taken any verapamil (Isoptin/Calan), ketoconazole (Nizoral), cimetidine (Tagamet), trimethoprim (Trimpex), trimethoprim/sulfamethoxazole (Bactrim), megesterol (Megace), prochlorperazine (Compazine),
hydrochlorothiazide (HCTZ), dolutegravir (Tivicay) or any Class I or Class III anti-arrhythmic within the last three days
AND
I verify that the patient has not taken amiodarone within the last THREE months, or that the patient's amiodarone plasma concentration is <0.3 mcg/mL.
Creatinine 0.9 mg/dL (0.7-1.3) 11/30/24 11:20
Estimated Creat Clear 76 ml/min 11/30/24 11:20
calculated creatinine clearance 80
Does patient have a Ventricular Conduction Abnormality: No
I have assessed the baseline QTc interval (using QT for heart rate less than 60 bpm) and deemed the patient is appropriate for Dofetilide therapy. I understand that Tikosyn is contraindicated if the QTc is >440msec (500msec in patients with
ventricular conduction abnormalities).
Baseline QTc (in msec): 412
QTc interval is greater than 440msec without conduction abnormality OR greater than 500msec with a conduction abnormality, but acceptable to proceed per Cardiology attending.
Ordering Physician: Gigi Lock
--- NOTE | 2024-11-30 12:45 | W.PN.CARDCBS ---
Addendum entered and electronically signed by Gigi Lock MD 11/30/24 13:55:
Patient interviewed and examined.
Note below reviewed in detail, and agree unless otherwise specified.
74-year-old man with prior history of atrial fibrillation, PVI x 2, now with atypical atrial flutter admitted for increased dofetilide dosing.
PMH: As above, plus nonobstructive CAD, anxiety, hyperlipidemia, GERD, renal calculus and colon resection
Meds: Reviewed
145/98, pulse 82, respiratory rate 18, afebrile, head neck exam unremarkable, lungs are clear, regular rate and rhythm without murmurs or gallops, abdomen benign extremities without clubbing cyanosis or edema
Hemoglobin 13, potassium 4.6 creatinine 22 and 0.9
EKG today: Atypical atrial flutter, PVC versus aberrant conduction, likely the former, QTc difficult but normal, nonspecific ST and T changes
Impression:
Atypical presumably left atrial flutter following PVI
Plan:
Increase dofetilide to 500 mcg twice daily
Follow ECG closely
Consider switch from diltiazem to beta-kinza
Original Note:
Today's Communication / Plan
-
Baseline QTc 412 ms
Calculated creatinine clearance 80
Start Tikosyn 500 mcg twice daily
Impression / Plan
-
PCP: Alysa Trevizo
Primary sand temperer: Jose Alejandro Alonzo MD
See office visit note 11/06/2024 which outlines plan
Impression:
Atrial flutter
- Started Tikosyn 02/2024 for atypical a flutter
-Cardioversion 09/29/2024
Atrial fibrillation
- Status post ablation 06/2022,
- Pulsed field PVI/LAPW 11/2023
CAD, known 50% OM, 50 to 60% RCA on left heart cath 03/2022
Generalized anxiety disorder, on Lexapro
Hyperlipidemia
GERD
Kidney stones status post lithotripsy 2009 a
Diverticulosis with perforation and colon resection 2009
Previous diagnostic studies:
Left heart cath 04/03/2022: Mild CAD: RCA 40 to 50% and mid RCA 60%, circumflex mid 50%
Stress echo 03/30/2022: 8.5 METS, frequent ectopy, EKG positive with [address] depressions, basal to mid inferior hypokinesis
Zio 04/2022 3% A-fib, 1 run NSVT 6 beats, frequent PVCs 8.2%
Atrial flutter
- Presents for Tikosyn uptitration due to recurrent atrial flutter on current dose of Tikosyn 250 mcg twice daily.
- Baseline QTc 412 ms
-Calculated creatinine clearance 80
-K4.6, mag 1.8, TSH 2.5
-Initiate Tikosyn 500 mcg twice daily and check EKG 2 hours after each dose of Tikosyn
- Daily BMP and magnesium
-He was started back on his SSRI, Lexapro 10 mg daily about a month ago. Takes med for ROSE.
- Aware that this medication can also cause prolonged QTc and will closely monitor QTc with uptitration of Tikosyn dose
- Cardioversion prior to discharge if he does not convert to sinus rhythm with uptitration of Tikosyn.
Progress Note - Lcac Radar Operator/Navigator
Subjective
Date of Service: November 30, 2024
Presents for admission for Tikosyn uptitration
Complains of palpitations
No lightheadedness, dizziness
Objective
Labs:
11/30/24 09:03
11/30/24 11:20
Labs
Hgb 13.0 g/dL (13.0-18.0) 11/30/24 09:03
Hct 39.0 % (39.0-52.0) 11/30/24 09:03
Plt Count 426 10^3/uL (130-400) H 11/30/24 09:03
Sodium 137 mmol/L (135-145) 11/30/24 11:20
Potassium 4.6 mmol/L (3.5-5.1) 11/30/24 11:20
BUN 22 mg/dl (9-20) H 11/30/24 11:20
Creatinine 0.9 mg/dL (0.7-1.3) 11/30/24 11:20
Glucose 100 mg/dl (70-99) H 11/30/24 11:20
Vital Signs and I&O:
Vital Signs
Temp Pulse Resp BP Pulse Ox
98.3 F 82 18 145/98 98
11/30/24 11:01 11/30/24 11:45 11/30/24 11:01 11/30/24 11:03 11/30/24 11:03
Vital Signs
Temp Pulse Resp BP Pulse Ox
98.3 F 82 18 145/98 98
11/30/24 11:01 11/30/24 11:45 11/30/24 11:01 11/30/24 11:03 11/30/24 11:03
Physical Exam
Physical Exam
GEN: No distress, awake, Ox3
HEENT: supple, anicteric, mmm
LUNGS: CTA, no wheezes/rales
CV: Irregular irregular, S1/S2,no murmur
ABD: soft, BS+, NT/ND
EXT: No edema
NEURO: Gross non-focal
SKIN: No rash
[2024-11-30] MEDS: TIKOSYN 500 MCG PO (13:09)
[2024-11-30] MEDS: LEXAPRO 10 MG PO (13:10)
--- NOTE | 2024-11-30 13:49 | CM ---
spoke to pt in room, he is prev indep, lives with his in a split level home with no steps to enter. he denies any dc planning needs or dme's. he was prev on tikosyn/dofetilide 250 mcg and is increasing his dose. pt has a supply of 250 mcg at
home.
--- NOTE | 2024-11-30 15:42 | PTCARENOTE ---
Pt arrived to the unit for tikosyn load, first dose initiated 11/30 13:00, afib with AV block
[2024-11-30] MEDS: LIPITOR 40 MG PO (16:59)
[2024-11-30] MEDS: CARDIZEM CD 120 MG PO (19:19)
[2024-11-30] MEDS: ELIQUIS 5 MG PO (19:19)
[2024-11-30] MEDS: ZESTRIL 10 MG PO (20:49)
--- NOTE | 2024-11-30 21:23 | PTCARENOTE ---
Addendum entered by Paula Zelaya RN 12/01/24 00:12:
Patient lying in bed. Blood pressure 144/115. Dr. Campbell made aware, and orders obtained for 20mg PO Lisinopril. Medication administered. Patient denies any headaches or discomfort at that time. POC ongoing.
Original Note:
Assumed care of patient at change of shift. AAOx3 and ambulating self in room. Denies any dizziness. Tele remains Afib/aflutter w/ PVCs HR in the 80-110's. Denies any chest discomfort. BPs elevated, checked b/l w/ similar result of 160's/110's.
Denies anxiousness or any pain at this time. Dr. Campbell made aware, and orders obtained for one time dose of 10mg PO Lisinopril. Medication administered at 20:49. Reviewed plan of care w/ patient. Call teixeira in reach.
[2024-11-30] MEDS: ZESTRIL 20 MG PO (23:31)
[2024-12-01] MEDS: TIKOSYN 500 MCG PO ×2 (00:58→13:06)
[2024-12-01 03:01] VITALS: BP 145/107
--- NOTE | 2024-12-01 03:24 | PTCARENOTE ---
2nd dose of Tikosyn administered. EKG obtained 2hrs post med administration per protocol. QTc 544, pt Aflutter w/ variable AV block w/ PVCs and prolonged qt. Pt denies any chest discomfort. BP 145/107. Patient c/o voiding frequently in bathroom.
Denies any burning. Urine color clear per pt.
[2024-12-01 03:56] LABS: Blood Urea Nitrogen 19 mg/dl (9-20); Calcium 9.4 mg/dl (8.4-10.2); Carbon Dioxide 27 mmol/L (22-30); Chloride 106 mmol/L (98-107); Estimated Creatinine Clearance 76 ml/min; Glucose 92 mg/dl (70-99); Magnesium 1.9 mg/dl (1.6-2.3); Potassium 3.6 mmol/L (3.5-5.1); Sodium 138 mmol/L (135-145); eGFR > 60.00
[2024-12-01 03:57] LABS: Hematocrit 42.4 % (39.0-52.0); Hemoglobin 13.7 g/dL (13.0-18.0); Mean Corp Hgb Conc. 32.3 g/dL (33.0-37.0); Mean Corpuscular Volume 83.5 fL (80.0-94.0); Platelet Count 206 10^3/uL (130-400); Red Cell Dist. Width 13.7 % (11.5-14.5)
[2024-12-01 07:59] VITALS: BP 139/108
[2024-12-01] MEDS: PROTONIX 40 MG PO (08:18)
--- NOTE | 2024-12-01 08:57 | W.PN.CARDCBS ---
Addendum entered and electronically signed by Otilio Vera MD 12/01/24 09:16:
I saw and examined the patient.
The Air Brake Man's note was reviewed and I agree with the note.
Comment:
GEN: No distress, awake, Ox3
HEENT: supple, anicteric, mmm
LUNGS: CTA, no wheezes/rales
CV: Irreg, S1/S2, 1/6 syst LSB, no gallop
ABD: soft, BS+, NT/ND
EXT: No edema
NEURO: Gross non-focal
SKIN: No rash
PLan:
Remains in atrial flutter. Continue Tikosyn 500 mcg every 12.
Will need repeat EKG once back in sinus rhythm.
He remains in atrial fibrillation/flutter in a.m. will proceed with cardioversion.
Blood pressure is somewhat elevated. May need to add lisinopril. Continue to follow today. Continue Eliquis.
Addendum entered and electronically signed by Khadra Lock PA-C 12/01/24 09:13:
of note, received one time doses of lisinopril overnight for HTN. would consider addition of standing dose pending BP trends. IV lopressor also ordered.
Original Note:
Today's Communication / Plan
-
Continue Tikosyn 500 mcg every 12 hours
Follow QTc, particularly once sinus rhythm restored
Continue Eliquis
Cardioversion in a.m. if remains in a flutter
IV Lopressor as needed, follow BP trends
Impression / Plan
-
PCP: Alysa Trevizo
Primary shipyard helper: Jose Alejandro Alonzo MD
See office visit note 11/06/2024 which outlines plan
Impression:
Atrial flutter
- Started Tikosyn 02/2024 for atypical a flutter
-Cardioversion 09/29/2024
Atrial fibrillation
- Status post ablation 06/2022,
- Pulsed field PVI/LAPW 11/2023
CAD, known 50% OM, 50 to 60% RCA on left heart cath 03/2022
Generalized anxiety disorder, on Lexapro
Hyperlipidemia
GERD
Kidney stones status post lithotripsy 2009
Diverticulosis with perforation and colon resection 2009
Previous diagnostic studies:
Left heart cath 04/03/2022: Mild CAD: RCA 40 to 50% and mid RCA 60%, circumflex mid 50%
Stress echo 03/30/2022: 8.5 METS, frequent ectopy, EKG positive with [address] depressions, basal to mid inferior hypokinesis
Zio 04/2022 3% A-fib, 1 run NSVT 6 beats, frequent PVCs 8.2%
Plan:
- Patient presented for Tikosyn uptitration due to recurrent atrial flutter on Tikosyn 250 mcg twice daily
- QTc by most recent EKG noted to be 544 ms, however unclear if overestimated as remains in atrial flutter. Would continue Tikosyn 500 mcg twice daily and follow QTc by EKG, particularly once back in sinus rhythm. He does also take Lexapro 10 mg
daily
- He has no missed doses of Eliquis as outpatient. Will plan for cardioversion in a.m. if remains in a flutter rhythm
- Blood pressure is noted to be elevated since admission. He states as an outpatient his checks his blood pressure frequently, and historically has been very well-controlled. Concern for whitecoat hypertension. Will add IV lopressor PRN and
follow. He takes Cardizem 120 mg twice daily, and is hesitant to add additional antihypertensive at this time as blood pressures have been good as outpatient. He reports history of fatigue on beta-kinza in the past, so ideally would avoid
Progress Note - Sanforizer
Subjective
Date of Service: December 01, 2024
Feeling well. No complaints
Objective
Labs:
12/01/24 03:20
12/01/24 03:20
Labs
Hgb 13.7 g/dL (13.0-18.0) 12/01/24 03:20
Hct 42.4 % (39.0-52.0) 12/01/24 03:20
Plt Count 206 10^3/uL (130-400) D 12/01/24 03:20
Sodium 138 mmol/L (135-145) 12/01/24 03:20
Potassium 3.6 mmol/L (3.5-5.1) 12/01/24 03:20
BUN 19 mg/dl (9-20) 12/01/24 03:20
Creatinine 0.9 mg/dL (0.7-1.3) 12/01/24 03:20
Glucose 92 mg/dl (70-99) 12/01/24 03:20
Vital Signs and I&O:
Vital Signs
Temp Pulse Resp BP Pulse Ox
98.3 F 97 18 145/107 98
12/01/24 08:00 12/01/24 06:00 12/01/24 08:00 12/01/24 03:01 12/01/24 08:00
Vital Signs
Temp Pulse Resp BP Pulse Ox
98.3 F 97 18 145/107 98
12/01/24 08:00 12/01/24 06:00 12/01/24 08:00 12/01/24 03:01 12/01/24 08:00
Intake & Output
11/29/24 11/30/24 12/01/24 12/02/24
07:59 07:59 07:59 07:59
Intake Total 960 / 960
Balance 960 / 960
Physical Exam
Physical Exam
GEN: No distress, awake, alert, oriented x3
HEENT: supple, anicteric, mmm, EOMI
LUNGS: CTA bilaterally, no wheezes/rales
CV: Irreg, S1/S2, no murmur
ABD: soft, BS+, NT/ND
EXT: No cyanosis, clubbing, edema
NEURO: Gross non-focal
SKIN: Warm, pink, dry. No rash
[2024-12-01] MEDS: CARDIZEM CD 120 MG PO ×2 (09:06→19:20)
[2024-12-01] MEDS: ELIQUIS 5 MG PO ×2 (09:06→19:20)
[2024-12-01 11:27] VITALS: BP 143/112
[2024-12-01] MEDS: LEXAPRO 10 MG PO (13:06)
--- NOTE | 2024-12-01 14:16 | PTCARENOTE ---
Pt ambulated in [facility] and in room, denies pain, denies SOB, 3rd Tikosyn dose given around 1310.
[2024-12-01 15:22] VITALS: BP 134/97
[2024-12-01] MEDS: LIPITOR 40 MG PO (17:43)
[2024-12-01 18:48] VITALS: BP 150/100
[2024-12-01 22:17] VITALS: BP 129/87
[2024-12-02] VITALS (8 sets, daily range): BP systolic 107–139; BP diastolic 78–106
[2024-12-02] MEDS: TIKOSYN 500 MCG PO ×2 (00:57→12:43)
[2024-12-02 04:07] LABS: Blood Urea Nitrogen 19 mg/dl (9-20); Calcium 9.2 mg/dl (8.4-10.2); Carbon Dioxide 27 mmol/L (22-30); Chloride 106 mmol/L (98-107); Estimated Creatinine Clearance 76 ml/min; Glucose 91 mg/dl (70-99); Magnesium 1.8 mg/dl (1.6-2.3); Potassium 3.6 mmol/L (3.5-5.1); Sodium 138 mmol/L (135-145); eGFR > 60.00
--- NOTE | 2024-12-02 05:21 | PTCARENOTE ---
4th dose of Tikosyn administered at 00:58. EKG obtained 2hrs post per protocol, QTc 255. Patient aware to maintain NPO status for planned CV today. Denies any pain or discomfort. Call teixeira in reach.
[2024-12-02] MEDS: ELIQUIS 5 MG PO (08:13)
[2024-12-02] MEDS: PROTONIX 40 MG PO (08:13)
[2024-12-02] MEDS: CARDIZEM CD 120 MG PO (08:13)
--- NOTE | 2024-12-02 10:43 | PTCARENOTE ---
Assumed care at 0700. Patient NPO for VC, A-fib occ. PVC's HR 104, BP 120/102. Denies pain or palliations. Walking independently in room and halls. Report called to the dairy and food laboratory assistant. Patient voided pre-procedure
--- NOTE | 2024-12-02 11:35 | CM ---
Pricing on Dofetilide 500mcq BID is covered under the patient's prescription plan for a $0 copay. It is in stock at the patient's [facility].
--- NOTE | 2024-12-02 11:37 | CM ---
Chart reviewed. Patient going for a cardioversion today. Patient is independent of ADLS, lives with his life in a split level, 0 DEREJE. Plan is for the patient to return home. CM to follow
--- NOTE | 2024-12-02 12:29 | W.PN.CARDCBS ---
Addendum entered and electronically signed by Khadra Lock PA-C 12/02/24 16:47:
[id number]
Addendum entered and electronically signed by Otilio Vera MD 12/02/24 16:00:
I saw and examined the patient.
The Stopping Builder's note was reviewed and I agree with the note.
Comment:
GEN: No distress, awake, Ox3
HEENT: supple, anicteric, mmm
LUNGS: CTA, no wheezes/rales
CV: Reg, S1/S2, 1/6 syst LSB, no gallop
ABD: soft, BS+, NT/ND
EXT: No edema
NEURO: Gross non-focal
SKIN: No rash
Plan:
Status post cardioverted and back in sinus rhythm. QTc overall stable.
Continue Tikosyn 500 mcg every 12. Cont Eliquis
Okay for discharge.
Original Note:
Today's Communication / Plan
-
s/p successful CV
QTc improved in SR, follow
continue tikosyn 500 mcg Q12H
plan for DC today if QTc stable by 1500 EKG
Impression / Plan
-
PCP: Alysa Trevizo
Primary bridge opener: Jose Alejandro Alonzo MD
See office visit note 11/06/2024 which outlines plan
Impression:
Admission for tikosyn loading
Atrial flutter
- Started Tikosyn 02/2024 for atypical aflutter
-Cardioversion 09/29/2024
-cardioversion
Atrial fibrillation
- Status post ablation 06/2022,
- Pulsed field PVI/LAPW 11/2023
CAD, known 50% OM, 50 to 60% RCA on left heart cath 03/2022
Generalized anxiety disorder, on Lexapro
Hyperlipidemia
GERD
Kidney stones status post lithotripsy 2010 a
Diverticulosis with perforation and colon resection 2009
Previous diagnostic studies:
Left heart cath 04/03/2022: Mild CAD: RCA 40 to 50% and mid RCA 60%, circumflex mid 50%
Stress echo 03/30/2022: 8.5 METS, frequent ectopy, EKG positive with [address] depressions, basal to mid inferior hypokinesis
Zio 04/2022 3% A-fib, 1 run NSVT 6 beats, frequent PVCs 8.2%
Plan:
- Patient presented for Tikosyn uptitration due to recurrent atrial flutter on Tikosyn 250 mcg twice daily
- s/p successful CV 12/02/24
- QTc appears improved in SR. continue tikosyn 500mcg Q12H. of note, he is also on lexapro 10mg daily
- continue eliquis
- Blood pressure, particularly diastolic, is noted to be elevated since admission. He states as an outpatient his checks his blood pressure frequently, and historically has been very well-controlled. Concern for whitecoat hypertension. He
takes Cardizem 120 mg twice daily, and is hesitant to add additional antihypertensive at this time as blood pressures have been good as outpatient. He reports history of fatigue on beta-kinza in the past, so ideally would avoid. encouraged him to
follow as OP
- OP cardiac follow up arranged
- plan for DC today if QTc by 1500 EKG stable
- d/w nursing. d/w patient and at bedside
Progress Note - Customer Solutions Architect
Subjective
Date of Service: December 02, 2024
s/p CV. no complaints
Objective
Labs:
12/01/24 03:20
12/02/24 03:19
Labs
Hgb 13.7 g/dL (13.0-18.0) 12/01/24 03:20
Hct 42.4 % (39.0-52.0) 12/01/24 03:20
Plt Count 206 10^3/uL (130-400) D 12/01/24 03:20
Sodium 138 mmol/L (135-145) 12/02/24 03:19
Potassium 3.6 mmol/L (3.5-5.1) 12/02/24 03:19
BUN 19 mg/dl (9-20) 12/02/24 03:19
Creatinine 0.9 mg/dL (0.7-1.3) 12/02/24 03:19
Glucose 91 mg/dl (70-99) 12/02/24 03:19
Vital Signs and I&O:
Vital Signs
Temp Pulse Resp BP Pulse Ox
97.5 F 72 20 120/102 98
12/02/24 07:33 12/02/24 12:18 12/02/24 07:33 12/02/24 07:35 12/02/24 07:33
Vital Signs
Temp Pulse Resp BP Pulse Ox
97.5 F 72 20 120/102 98
12/02/24 07:33 12/02/24 12:18 12/02/24 07:33 12/02/24 07:35 12/02/24 07:33
Intake & Output
11/30/24 12/01/24 12/02/24 12/03/24
07:59 07:59 07:59 07:59
Intake Total 960 / 960
Balance 960 / 960
Physical Exam
Physical Exam
GEN: No distress, awake, alert, oriented x3
HEENT: supple, anicteric, mmm, EOMI
LUNGS: CTA bilaterally, no wheezes/rales
CV: Irreg, S1/S2, no murmur
ABD: soft, BS+, NT/ND
EXT: No cyanosis, clubbing, edema
NEURO: Gross non-focal
SKIN: Warm, pink, dry. No rash
--- NOTE | 2024-12-02 12:47 | W.DS.TRANS ---
DC Summary - Refrigeration Person
-
Discharge Instructions:
Sleep Apnea Risk Intermediate
Discharge Diagnosis/Procedures tikosyn load, atrial flutter
Diet Low Cholesterol
Activity As tolerated
Driving Restrictions No driving for 24 hours
Instructions:
Stand-Alone Forms:
Changes to Home Medications: Yes
Discharge Medications:
DC Medications w/original date entered in [employer] [facility]
apixaban 5 mg tablet (Eliquis) 5 mg PO BID blood thinner 04/03/22
atorvastatin 40 mg tablet 40 mg PO QPM High Cholesterol 04/03/22
esomeprazole magnesium 40 mg capsule,delayed release 40 mg PO DAILY Gastrointestinal Issue 04/03/22
Bifidobacterium infantis 4 mg capsule (Align (B.infantis)) 4 mg PO DAILY probiotic 10/15/23
escitalopram oxalate 10 mg tablet (Lexapro) 10 mg PO DAILY Depression 11/30/24
fluticasone propionate 50 mcg/actuation nasal spray,suspension 2 mcg intranasal 1XD Lung/Breathing Issues 11/30/24
diltiazem HCl 120 mg capsule,extended release 24 hr 120 mg PO BID Heart Disease/Condition 12/01/24
dofetilide 500 mcg capsule (Tikosyn) 500 mcg PO Q12H #60 caps 12/02/24
Home Medication Changes
tikosyn dose increased
Pending Results: No
--- NOTE | 2024-12-02 13:15 | PTCARENOTE ---
Patient received s/p Cardioversion, assisted to bed. NSR with PVC's in the 70's, VSS. Call teixeira in reach
[2024-12-02] MEDS: LEXAPRO 10 MG PO (15:03)
--- NOTE | 2024-12-02 15:16 | PTCARENOTE ---
Patient discharged to home. IV and telemetry removed. Written instructions reviewed and he verbalized understanding. [facility]
== END 2024-12-02 15:20 | disposition home or self-care (01) | DRG 310 ==
LOC: IVU 08:10
PROVIDERS: Nurse Practitioner; Student in an Organized Health Care Education/Training Program; ADMITTING PHYSICIAN Internal Medicine Cardiovascular Disease; ATTENDING PHYSICIAN Nuclear Medicine Nuclear Cardiology; FAMILY PHYSICIAN Internal Medicine
PROC: 5A2204Z Restoration of Cardiac Rhythm, Single (ICD-10-PCS; 2024-12-02)
DX: I48.92 Unspecified atrial flutter (principal); I48.0 Paroxysmal atrial fibrillation; F41.1 Generalized anxiety disorder; Z79.899 Other long term (current) drug therapy
CPT/HCPCS: 80048; 83735; 84443; 85027; 92960; 93005

== ENCOUNTER → 2024-12-25 12:36 | Outpatient (REF) | payer OTHER, SELFPAY | LOC: HWRCS 12:36 | PROVIDERS: ATTENDING PHYSICIAN Internal Medicine Cardiovascular Disease; FAMILY PHYSICIAN Internal Medicine | DX: I48.92 Unspecified atrial flutter (principal) | CPT/HCPCS: 93306 ==

== ENCOUNTER 2025-01-21 07:53 | Day surgery (SDC) | payer OTHER, SELFPAY ==
[2025-01-01 10:11] VITALS: BMI 25.2
[2025-01-01 10:37] LABS: INR 1.15; PT 15.0 Sec (11.4-14.6)
[2025-01-01 10:40] LABS: ALT (SGPT) 29 U/L (0-50); AST (SGOT) 21 U/L (17-59); Albumin 4.3 g/dl (3.5-5.0); Alkaline Phosphatase 100 U/L (38-126); Blood Urea Nitrogen 23 mg/dl (9-20); Calcium 9.3 mg/dl (8.4-10.2); Carbon Dioxide 27 mmol/L (22-30); Chloride 101 mmol/L (98-107); Estimated Creatinine Clearance 76 ml/min; Glucose 98 mg/dl (70-99); Magnesium 1.7 mg/dl (1.6-2.3); Potassium 4.2 mmol/L (3.5-5.1); Sodium 137 mmol/L (135-145); Total Protein 7.0 g/dl (6.3-8.2); eGFR > 60.00
[2025-01-01 10:50] LABS: Hematocrit 41.8 % (39.0-52.0); Hemoglobin 13.6 g/dL (13.0-18.0); Mean Corp Hgb Conc. 32.5 g/dL (33.0-37.0); Mean Corpuscular Volume 83.6 fL (80.0-94.0); Nucleated Red Blood Cells % 0 % (-); Platelet Count 206 10^3/uL (130-400); Red Cell Dist. Width 14.0 % (11.5-14.5)
[2025-01-21] VITALS (20 sets, daily range): BP systolic 125–157; BP diastolic 77–99; BMI 24.6
--- NOTE | 2025-01-21 11:48 | ITS.CL.ABL ---
Drill Grinder - Ablation
Ablation
Procedure Report:
ELECTROPHYSIOLOGY ABLATION STUDY
DATE:: January 21, 2025�����������������������������REFERRING: Dr. Jose Alejandro Harman
INDICATION: Paroxysmal supraventricular tachycardia in the form of atypical flutter. Positive throughout the precordium and inferiorly directed with another morphology seen clinically which could be clockwise CTI flutter which is negative in V1,
positive in V2 through V6 and inferiorly directed. Prior pulmonary vein isolation x 2 with posterior wall isolation most recently in 2023 with pulsed field ablation.
HISTORY: See H and P.��As above
ANTIARRHYTHMIC DRUG: Dofetilide 500 mcg twice daily
PRE-PROCEDURE CHAZ: No intracardiac thrombus. Post procedure there was normal ejection fraction and no focal or regional wall motion abnormalities on intracardiac ultrasound
PRESENTING RHYTHM: Sinus bradycardia
'TIME-OUT':��called and confirmed.
SEDATION/ANESTHESIA:��provided via the anesthesia department using general anesthesia (LMA).
INTRAVENOUS/ARTERIAL ACCESS:
Right femoral venous - 10 Fr,
Left femoral venous - 8 Fr, 6 Fr
Vorsza-ek-kjayi suture bilaterally.
Ultrasound guidance for bilateral femoral vein access was utilized by me to obtain access with demonstration of normal anatomy
CHADS-VASC Score:
HAS-Bled Score
PROCEDURE:
1.��A decapolar CS catheter was placed within the CS for mapping and pacing.��This was also used as the reference catheter for the 3-D map.
2. The intracardiac ultrasound catheter was positioned in the RA to identify the FO for targeting of transseptal puncture, assist��in identification of the pulmonary vein ostia, monitoring pre and post ablation pulmonary vein flow velocities,
monitoring for 'bubble' formation during RF application as a sign of thermal injury,��and to monitor for pericardial effusion during mapping and ablation procedure.���Left atrial size, LV ejection fraction, and pulmonary vein flows were monitored
pre and post ablation procedure. The other valves were inspected and found to be free of significant regurgitation or stenosis.
3.��Half of the calculated heparin bolus was administered prior to the first transeptal puncture.��Transseptal puncture was performed to diagnose RA and LA pressure so that safety of LA mapping and ablation could be further assessed, and to access
the left atrium and pulmonary veins for mapping and ablation.��This entailed advancing an 10 Icelandic steerable sheath with dilator into the superior vena cava and withdrawing both (monitoring intracardiac ultrasound, fluoroscopy and tip pressure)
with the tip oriented toward the atrial septum.��The fossa ovalis was engaged (indicated by sudden displacement of the sheath tip as well as tenting of the fossa seen on intracardiac ultrasound).��Left atrial access required a pass with the
Brockenbrough needle extended.��Left atrial catheter position was confirmed by pressure monitoring (RA mean pressure 4 mm Hg and LA mean presure 8 mm Hg), LA saturation (99%),��as well as fluoroscopy.��The sheath was advanced over the dilator and
positioned in the left atrium.��This procedure was repeated for the Agilis sheath.��The remainder of the calculated heparin bolus was administered and heparin was
infused to maintain ACT at 300 -350 seconds throughout the case.
4.��RA pacing was performed via the proximal decapolar poles and LA pacing was performed via the distal decapolr poles.
5. A quadrapolar catheter was first positioned at the His position for His Bundle recording which was tagged via the 3-D Navex sytem, and then passed to the RVA for RV pacing and recording.
6. The ablation catheter was positioned through one of the transeptal seaths and a 20 pole ring mapping catheter was positioned through the second seath into the LA and then the ostia of the LIPV, LSPV, RSPV and the RIPV.��
7.��Next, a 3-D map was created using Navex.���A 3-D reconstructed CT image was compared to the 3-D Navex map to assist in anatomic interpretation, mapping and ablation.��The CT image and the NavX image were fused.
8. The right pulmonary veins were isolated at baseline. The left pulmonary veins were isolated ostially. There was signal on the ligament of Napoleon on the appendage side of the ligament of Napoleon so we addressed this signal from roof down to
the floor anteriorly to the left veins along the left atrial appendage side of the ligament of Napoleon rendering entrance and exit block in the left superior and left inferior pulmonary veins. We then performed a lateral mitral flutter ablation
from 4:00 on the mitral valve annulus back towards left inferior pulmonary vein utilizing radiofrequency energy at 400 W for 4 seconds to the midportion of the linear lesion set and then PFA from the midportion of the linear lesion set back to the
left inferior pulmonary vein and connecting back towards the prior posterior wall isolation. At baseline the posterior wall was isolated from roof to floor. Once the mitral flutter ablation was performed we paced from the coronary sinus
demonstrating persistent bidirectional block pacing above and below the line with intra isthmus conduction time of approximately 164 ms. We then performed additional substrate based ablation in the floor of the left atrium as well. Entrance and
exit block was confirmed in all 4 pulmonary veins the posterior wall and reconfirmed with bidirectional block across the mitral isthmus line.
9. An RF line was also placed at the IVC-TVA isthmus under direct intracardiac ultrasound visualization with radiofrequency energy delivered at the valve and proximal portion of the isthmus line. From the midportion of the isthmus line back to the
IVC PFA was delivered rendering bidirectional block with an intra isthmus conduction time of 160 ms. During ablation across the isthmus there was transient atrial tachycardia which was nonsustained and self terminated. We did entrain from the
coronary sinus and both the mitral isthmus and CTI were out of the circuit. As the tachycardia self terminated and was nonsustained and was no longer inducible after completion of the CTI flutter ablation no further ablation was performed beyond
what was performed above.
TOTAL FLOURO TIME: 8.8 minutes 94 mGy
TOTAL RF DURATION: 1 minutes
REVERSAL OF HEPARIN: 35 mg of protamine, slow IV administration
COMPLICATIONS:
None
Intracardiac US shows no pericardial effusion post ablation.
SUMMARY:��
Complex left atrial mapping and ablation.
Targeting of the left atrial pended side of the ligament of Napoleon to address the left pulmonary veins. Mitral flutter ablation. CTI flutter ablation. Additional substrate in the left atrial floor with PFA.
RECOMMENDATIONS:
1. Ambulate in 4 hours
2. Resume anticoagulation
3.��Dofetilide for 6 to 12 months
4.��Out of bed in 4 hours consider same-day discharge
Copy to: Dr. Jose Alejandro Harman
--- NOTE | 2025-01-21 16:37 | W.PN.UPDATE ---
Update Note
Progress Note Update
74 yo WM s/p Aflutter ablation (same day). He denies cp, sob, yazan diet, voiding, EKG SR, b/l groins c/d/i no HT, soft. He will resume Eliquis tonight. He will continue dofetilide and diltiazem. Activity restrictions reviewed. He will f/u Dr. Collins
in 2 mo. He is for d/c home after 440pm.
[2025-01-22 11:34] LABS: ACT-LR - POC 250 Seconds (116-155)
[2025-01-22 11:34] LABS: ACT-LR - POC 316 Seconds (116-155)
== END 2025-01-21 16:40 | disposition home or self-care (01) ==
LOC: CATH 07:53
PROVIDERS: ATTENDING PHYSICIAN Internal Medicine Cardiovascular Disease; FAMILY PHYSICIAN Internal Medicine; OTHER PHYSICIAN Internal Medicine Cardiovascular Disease
DX: I47.10 Supraventricular tachycardia, unspecified (principal); I48.19 Other persistent atrial fibrillation; I48.92 Unspecified atrial flutter; I25.10 Atherosclerotic heart disease of native coronary artery without angina pectoris; I10 Essential (primary) hypertension; E78.5 Hyperlipidemia, unspecified; K21.9 Gastro-esophageal reflux disease without esophagitis; I49.3 Ventricular premature depolarization; Z79.01 Long term (current) use of anticoagulants; Z79.899 Other long term (current) drug therapy
CPT/HCPCS: C1733; C1894; C1730; C1766; C1892; C1759; 36415; 80053; 83735; 85025; 85610; 86850; 86900; 86901; 93005; 93462; 93653; 93655; 93662